=== PATIENT | male | born 2005 | race Caucasian/White ===

== ENCOUNTER 2025-04-19 17:25 | Emergency (ER) | payer SELFPAY ==
[2025-04-19] VITALS (17 sets, daily range): BP systolic 93–118; BP diastolic 47–74; PULSE 42–86; RESP 14–26; TEMP 36.6; O2SAT 94–100
--- NOTE | ~2025-04-19 | CT_ITS ---
CT of the Abdomen and Pelvis: Indication: Abdominal pain Technique: 2.5 mm axial scans were obtained through the abdomen and pelvis following intravenous adm inistration of 100 cc of Omnipaque 350. Dose reduction technique was used on this scan by utilizing a utomated exposure control and iterative reconstruction technique. The dose-length product (DLP) was 2 30.19 mGy-cm. Findings: Scans through the lung bases are unremarkable. The liver, spleen, pancreas, gallbladder, adrenals and kidneys are within normal limits. No evidence of aortic aneurysm. No lymphadenopathy. No bowel obstruction or bowel wall thickening. There is no evidence to suggest acute appendicitis. Images through the pelvis were performed. Urinary bladder unremarkable. No pelvic mass seen. No ascit es. Impression: No significant abnormalities seen. Reviewed, dictated and finalized at location . Impression: No significant abnormalities seen.
[2025-04-19 22:01] LABS: Hematocrit 42.6 % (42.0-52.0); Hemoglobin 14.4 g/dL (14.0-18.0); Immature Granulocyte Percent A 0.3 % (0-0.5); Lymphocytes Absolute Auto 1.91 K/mm3 (0.9-3.2); Mean Corpuscular HGB Conc 33.8 g/dl (32-36); Mean Corpuscular Hemoglobin 31.3 pg (26-34); Mean Corpuscular Volume 92.6 fl (80-100); Nucleated Red Blood Cells Absolute Auto 0.000 K/mm3 (0.0-0.012); Nucleated Red Blood Cells Perc 0.0 % (0.0-0.2); Platelet Count Result 241 k/mm3 (150-375); Red Blood Count 4.60 M/mm3 (4.6-6.20); White Blood Count 6.0 K/mm3 (4.5-10.0)
[2025-04-19 22:11] LABS: Add Urine Microscopic? YES; Appearance Urine Clear (Clear); Glucose Urine UA Negative (Negative); Leukocyte Esterase Ur Negative LEU/UL (Negative); Nitrate Urine Negative (Negative); Non Pathogenic Casts 0-2; Specific Grav Ur 1.032 (1.001-1.035)
[2025-04-19 22:12] LABS: Alanine Aminotransferase 12 U/L (6-50); Albumin Level 4.7 g/dL (3.5-5.1); Alkaline Phosphatase 49 U/L (38-126); Anion Gap 9 mmol/L (4-12); Aspartate Amino Transferase 25 U/L (17-59); Bilirubin,Total 0.6 mg/dL (0.2-1.3); Blood Urea Nitrogen 11 mg/dL (9-20); Calcium 9.2 mg/dL (8.4-10.2); Carbon Dioxide 29 mmol/L (22-30); Chloride 104 mmol/L (98-107); Estimated Glomerular Filt Rate > 60; Glucose 98 mg/dL (65-110); Lipase 43 U/L (23-300); Potassium 4.2 mmol/L (3.4-5.0); Sodium 142 mmol/L (137-145); Total Protein 7.8 g/dL (6.3-8.2)
--- OUTSIDE RECORDS SUMMARY | 2025-04-19 22:15 | XMS_ITS | Continuity of Care Document ---
Author Organization [facility] o f Concrete Address [address] [place] [address] Phone Care Team Providers Care Box Strapper Name Role Phone Salvador Kumar OD Unavailable Unavailable Procedures Procedure Date OPTICAL CO-PAYS OPTICAL CO-PAYS FITTING OF SPECTACLES Vision svcs frames purchases EYE EXAM, NEW PATIENT REFRACTION Advance Directives Directive Yes / No Effective Date File Name No Information Encounters Encounter Description Practice Location Reason(s) For Visit Diagnoses Date Provider Providers Copied on Encounter [facility], [facility] [address], [id number], tel:[phone] [address] [place] [address] No Information 6 José Franco. [address], [id number] , [place]. tel: [phone] [facility], [facility] [address], [id number], tel:[phone] [address] [place] [address] No Information 6 José Franco. [facility] [address], [id number] , [place]. tel: [phone] [facility] [address], [id number], [place] tel:[phone] [address] [place] [address] No Information 5 Brandy Elizabeth. [address], [id number] . tel: [phone] [facility], [address], [id number], [place] tel:[phone] [facility] No Information 5 Brandy Elizabeth. [facility] [address], [id number] . tel: [phone] Family History Family Member Type Diagnosis Age At Onset No Information Payers Payer name Insurance type Covered democrat ID Authoriza tion(s) No Information Social History Type Description Quantity Date Captured Comments Sex Male Smoking Status No Information Chief Complaint And Reason For Visit No Information Reason For Referral Reason For Referral No Information History Of Present Illness Encounter Date Complaint History Of Prese nt Illness No Information Functional Status Date Functional Assessmen t No Information Instructions Date Instruction Additional Infor mation No Information Assessments Type Assessment Date No Information Patient Care Teams Name Effective Dates (start - stop) Status Members No Information
--- OUTSIDE RECORDS SUMMARY | 2025-04-19 22:15 | XMS_ITS | Patient Health Record ---
Author Organization [facility] Billing Info Address [address] [place] [id number] Care Team Providers Care Corn Picker Name Role Phone Andrew Lai Primary Care Provider ROSA Lanza [phone] Reason For Referral No Information Medications Medication SIG (Take, Route, Frequency, Duration) Notes Start Date End Date Status Omeprazole 20 MG 1 capsule 30 minutes before morning meal Orally Once a day for 90 day(s) 01/18/2021 Active Olanzapine 20 MG 1 tablet Orally Once a day Unknown Famotidine Unknown Polyethylene Glycol 3350 17 GM/SCOOP Mix 15 capfuls of MiraLax in 64 oz of Gatorade and drink over 4 hours Orally Once a day for 1 day 12/24/2020 Active Dicyclomine HCl 20 MG 1 tablet as needed for abdominal cramping Orally BID for 30 day(s) 12/24/2020 Active Dicyclomine HCl 20 MG 1 tablet as needed for abdominal cramping Orally BID for 30 day(s) 01/18/2021 Active Ondansetron Unknown Fluoxetine HCl 10 MG 1 tablet Orally Onc e a day Unknown Social History Sex Assigned At : Social History Observation Description Sex Assigned At Male Section Notes: Lives with biologic parents. No recent ill contacts, foreign travel or unusual environmental exposures. No exposure to tobacco smoke at home. No stressors reported at home. Denies sexual activity or use of alcohol, tobacco or recreational drugs. Lives with biologic parents. No recent ill contacts, foreign travel or unusual environmental exposures. No exposure to tobacco smoke at home. No stressors reported at home. Denies sexual activity or use of alcohol, tobacco or recreational drugs. Problems No Known Problems Plan Of Treatment No Information Insurance Providers Payer Name Payer Address Payer Phone Subscriber Number Group Number Insured Name Patient Relationship to Insured Coverage Start Date Coverage End Date [facility] [address] [place], [place] [id number] Edward Newman Self - patient is the insured 7 8 Medical (General) History Medical History History ICD Code DMDD - disruptive mood dysregulation dis order chronic abdominal pain Surgical History Surgery Date(Month/Year) wisdom teeth extraction CT Abdomen [facility] 11/2020 Hospitalization History Reason Date(Month/Year) mental facility
--- OUTSIDE RECORDS SUMMARY | 2025-04-19 22:15 | XMS_ITS | Patient Health Record ---
Author Organization [facility] Address [address] [place] [address] Care Team Providers Care College Basketball Coach Name Role Phone Rita Castorena Primary Care Provider Reason For Referral No Information Medications Medication SIG (Take, Route, Frequency, Duration) Notes Start Date End Date Status OLANZapine 20 MG 1 tablet Orally Once a day; Duration: 30 day(s) Active PROzac 10 MG 1 capsule Orally Onc e a day; Duration: 30 day(s) Active Depakote ER 250 MG 1 tablet Orally Once a day; Duration: 30 day(s) takes in am Active Bactrim DS 800-160 MG 1 tablet Orally Tw ice a day; Duration: 7 days 12/31/2019 Active Mupirocin Calcium 2 % 1 application Externally Three times a day; Duration: 10 day(s) 12/31/2019 Active Depakote ER 500 MG 1 tablet Orally Once a day takes at night time Active Social History Tobacco Use: Social History Observation Description Date Details (start date - stop date) Never Smoker NA - NA Tobacco Use: Question Answer Notes Are you a: never smoker Alcohol Screening: Question Answer Notes Did you have a drink containing alcohol in the p ast year? No Points 0 Interpretation Negative Problems Problem Type SNOMED Code ICD Code Onset Dates Problem Status W/U Status Risk Notes Problem Attention deficit hyperactivity disorder, predominantly inattentive type (disorder) (94249767) Attention and concentration deficit (R41.840) Active confirmed Problem Insect bite of unspecified part of neck, initial encounter (S10.96XA) Active confirmed Problem Cellulitis (540546836) Cellulitis (L03.90) Active confirmed Plan Of Treatment No Information Insurance Providers Payer Name Payer Address Payer Phone Subscriber Number Group Number Insured Name Patient Relationship to Insured Coverage Start Date Coverage End Date [employer] [address] [place] [address] [id number] TIEN KAPLAN Self - patient is the insured Medical (General) History Medical History History ICD Code Attention deficit hyperactivity disorder (ADHD), unspecified ADHD type F90.9 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
--- NOTE | 2025-04-19 22:17 | ED.ABDPAIN ---
HPI - Abdominal Pain General Chief Complaint: Abdominal Pain Stated Complaint: r upper abd pain 3 weeks Time Seen by Provider: 04/19/25 21:38 History of Present Illness HPI narrative: 20-year-old otherwise healthy male presenting to the emergency department with intermittent right upper quadrant abdominal pain for several weeks associated with nausea and diarrhea/loose stools. No sick contacts, he states his symptoms get better with marijuana use. Denies any chronic medical conditions. Was otherwise in his normal state of health. Denies any traumatic injuries. No history of any surgeries in the abdomen. Presently not nauseous or vomiting. No dysuria, no blood in the urine or stool. No bloody emesis. No fever chills. Related Data Allergies Allergy/AdvReac Type Severity Reaction Status Date / Time No Known Allergies Allergy Verified 04/19/25 22:39 Review of Systems Review of Systems: As reviewed above in HPI Exam Narrative: GENERAL: [Well-appearing, well-nourished, and in no acute distress.] HEAD: [Normocephalic, atraumatic.] EYES: [PERRLA and EOMI.] ENT: Nares clear, no rhinorrhea or epistaxis. Mucous membranes moist. NECK: Supple. CHEST: [Clear to auscultation. No respiratory distress.] HEART: [Regular rate and rhythm]. No murmur heard. [Normal peripheral pulses.] ABDOMEN: [Soft, nondistended], mildly reproducible tenderness in the right upper quadrant, rebound or guarding, no peritonitis signs EXTREMITIES: Normal range of motion. [No edema.] SKIN: Warm, dry, no rash. NEURO: [No focal deficits]. Alert and oriented [x3.] PSYCH: [Normal mood and affect.] Course Vital Signs Vital signs: Vital Signs Temperature 36.6 C 04/19/25 17: Pulse Rate 84 04/19/25 17: Respiratory Rate 18 04/19/25 17: Blood Pressure 112/74 04/19/25 17:26 Pulse Oximetry 99 04/19/25 17:26 Oxygen Delivery Room Air 04/19/25 17: Temperature 36.6 C 04/19/25 17: Pulse Rate 86 04/19/25 19:56 Respiratory Rate 20 04/19/25 19:56 Blood Pressure 107/63 04/19/25 19:56 Pulse Oximetry 100 04/19/25 19:56 Oxygen Delivery Room Air 04/19/25 17:26 MDM - Abdominal Pain MDM Narrative Medical decision making narrative: 20-year-old otherwise healthy male presenting to the emergency department with intermittent right upper quadrant abdominal pain for several weeks associated with nausea and diarrhea/loose stools. No sick contacts, he states his symptoms get better with marijuana use. Denies any chronic medical conditions. Was otherwise in his normal state of health. Denies any traumatic injuries. No history of any surgeries in the abdomen. Presently not nauseous or vomiting. No dysuria, no blood in the urine or stool. No bloody emesis. No fever chills. Patient is overall well-appearing, ambulatory without any difficulty, normal vital signs any tachycardia, fever, hypoxemia blood pressure concerns. Reproducible mild pain in the right upper quadrant. Symptoms consistent with potential cholelithiasis, renal colic, gallbladder colic, less likely intra-abdominal infection or abscess. Possibility of cannabinoid induced symptoms. He is overall well-appearing low suspicion for emergent process. Laboratory studies, urinalysis and CT scan obtained. He was given Zofran and Bentyl. CT scan shows no acute findings. Patient's laboratory studies are all essentially normal. No etiology for patient's symptomatology here but likely related to his chronic cannabinoid use. Will be discharged home with Zofran and Bentyl as needed. Follow-up will be with his primary care provider. Medical Records Attestation: I reviewed the patient's medical records. Lab Data Attestation: I reviewed the patient's lab results. 04/19/25 21:53 04/19/25 21:53 Labs: Lab Results 04/19/25 Range/Units 21:53 WBC 6.0 (4.5-10.0) K/mm3 RBC 4.60 (4.6-6.20) M/mm3 Hgb 14.4 (14.0-18.0) g/dL Hct 42.6 (42.0-52.0) % MCV 92.6 (80-100) fl MCH 31.3 (26-34) pg MCHC 33.8 (32-36) g/dl RDW 12.2 (11.5-14.5) % Plt Count 241 (150-375) k/mm3 MPV 8.9 (7.4-10.4) fl Immature Gran % (Auto) 0.3 (0-0.5) % Neut % (Auto) 53.1 (45.5-73.1) % Lymph % (Auto) 32.0 (18.3-44.2) % Vance % (Auto) 7.9 (2.6-8.5) % Eos % (Auto) 5.7 H (0-4.4) % Baso % (Auto) 1.0 (0.2-1.2) % Lymph # (Auto) 1.91 (0.9-3.2) K/mm3 Vance # (Auto) 0.5 (0.1-0.6) K/mm3 Eos # (Auto) 0.3 (0-0.3) K/mm3 Baso # (Auto) 0.1 (0.0-0.1) K/mm3 Abs Immat Gran (auto) 0.02 (0.00-0.031) K/mm3 Absolute Neuts (auto) 3.2 (1.3-6.7) K/mm3 Absolute Nucleated RBC 0.000 (0.0-0.012) K/mm3 Nucleated RBC % 0.0 (0.0-0.2) % Sodium 142 (137-145) mmol/L Potassium 4.2 (3.4-5.0) mmol/L Chloride 104 (98-107) mmol/L Carbon Dioxide 29 (22-30) mmol/L Anion Gap 9 (4-12) mmol/L BUN 11 (9-20) mg/dL Creatinine 0.97 (0.7-1.3) mg/dL Estim Creat Clear Calc Not Reportable Estimated GFR > 60 (59 - ) Glucose 98 (65-110) mg/dL Calcium 9.2 (8.4-10.2) mg/dL Total Bilirubin 0.6 (0.2-1.3) mg/dL AST 25 (17-59) U/L ALT 12 (6-50) U/L Alkaline Phosphatase 49 (38-126) U/L Total Protein 7.8 (6.3-8.2) g/dL Albumin 4.7 (3.5-5.1) g/dL Lipase 43 (23-300) U/L Urine Color Dark yellow (Yellow) Urine Appearance Clear (Clear) Urine pH 6.0 (5.0-9.0) Ur Specific Lamar 1.032 (1.001-1.035) Urine Protein Trace (Negative) mg/dL Urine Glucose (UA) Negative (Negative) mg/dL Urine Ketones Trace H (Negative) mg/dL Ur Blood (Man) Negative (Negative) Urine Nitrate Negative (Negative) Urine Bilirubin 1+ H (Negative) Urine Urobilinogen 1.0 (<2.0) mg/dL Leukocyte Esterase Rfl Negative (Negative) ROBIN/UL Urine RBC 0-2 (0-2) /hpf Urine WBC 0-5 (0-3) /hpf Ur Squamous Epith Cells None seen (Few) /hpf Urine Bacteria None seen /hpf Urine Casts 0-2 Imaging Data Attestation: I personally reviewed and interpreted this imaging study as follows: My impression: No acute findings Discharge Plan Discharge Clinical Impression: Abdominal pain Patient Disposition: Home Condition: Stable Instructions: Antibiotic Form, Abdominal Pain (ED) Additional Instructions: Your laboratory studies are all normal and your CT scan shows no acute findings. Unclear exact source of your symptoms but no urgent or emergent concerns. Will prescribe you medications that can help with the symptoms. Refrain from any marijuana use as that can also exacerbate something like this. Follow-up with the primary care provider for further testing and outpatient evaluations. Patient Language: Icelandic Prescriptions: New dicyclomine 20 mg tablet 20 mg PO TID PRN (Reason: abdominal pain) Qty: 20 0RF ondansetron 4 mg tablet,disintegrating 4 mg PO Q8H PRN (Reason: nausea and vomiting) Qty: 10 0RF Follow-up/Referrals: PHYSICIAN,INFORMATION TECHNOLOGY OFFICER [Primary Care Provider] - Time of Disposition: 23:53
[2025-04-19] MEDS: DICYCLOMINE HCL 10 MG CAPSULE 20 MG PO (22:39)
[2025-04-19] MEDS: ONDANSETRON INJ 4 MG/2 ML VIAL IV PUSH (22:39)
[2025-04-20] VITALS (7 sets, daily range): BP systolic 89–106; BP diastolic 47–65; PULSE 39–44; RESP 15–22; TEMP 36.4; O2SAT 97–100
== END 2025-04-20 00:53 | disposition home or self-care (01) ==
PROVIDERS: Emergency Provider Student in an Organized Health Care Education/Training Program
DX: R10.11 Right upper quadrant pain (principal)
CPT/HCPCS: 36415; 74177; 80053; 81001; 83690; 85025; 96374; 99284; A9270; J2405; Q9967